=== PATIENT | female | born 1960 | race Caucasian/White ===

== ENCOUNTER → 2018-03-26 | Outpatient (CLI) | payer OTHER ==
--- NOTE | 2018-03-26 09:13 | CARD ---
MR#: [id number] Date of Study: 03/26/2018 Ordering Physician: BEATA HIGH, Referring Physician: BEATA HIGH, Tech: NORA Chang APPROVED REPORT EXAM: Two-dimensional and M-mode echocardiogram with Doppler and color Doppler. Other Information Quality : AverageHR: 62bpm INDICATION Near Syncope 2D DIMENSIONS RVDd2.9 (2.9-3.5cm)Left Atrium(2D)2.6 (1.6-4.0cm) IVSd1.1 (0.7-1.1cm)Aortic Root(2D)3.2 (2.0-3.7cm) LVDd4.7 (3.9-5.9cm)LVOT Diameter1.9 (1.8-2.4cm) PWd1.2 (0.7-1.1cm)LVDs3.3 (2.5-4.0cm) FS (%) 31.1 %SV60.7 ml LVEF(%)58.7 (>50%) Aortic Valve AoV Peak Brijesh.138.7cm/sAoV VTI32.1cm AO Peak GR.7.7mmHgLVOT Peak Brijesh.100.2cm/s LVOT VTI 21.77cmAO Mean GR.5mmHg MEME (VMAX)2.23jm7SHX (VTI)1.90cm2 Mitral Valve MV E Qyxelhon08.2cm/sMV DECEL JOMX410ni MV A Vscltubl67.5cm/sE/A Ratio0.8 Pulmonary Valve PV Peak Xwowsbcb52.3cm/sPV Peak Grad.4mmHg Tricuspid Valve TR P. Zfsxisxd624yh/sRAP BMVNDRTE47dgFq TR Peak Gr.69nfDoLRCA55ifBu Pulmonary Vein S1 Qtyqwxez63.6cm/sD2 Oaaaqkdu46.3cm/s LEFT VENTRICLE The left ventricle is normal size. There is mild LVPW hypertrophy. The left ventricular systolic func tion is normal and the ejection fraction is within normal range. ef 55% There is normal LV segmental wall motion. Transmitral Doppler flow pattern is Grade I-abnormal relaxation pattern. RIGHT VENTRICLE The right ventricle is normal size. The right ventricular systolic function is normal. ATRIA The left atrium size is normal. The right atrium size is normal. The interatrial septum is intact wit h no evidence for an atrial septal defect or patent foramen ovale as noted on 2-D or Doppler imaging. AORTIC VALVE The aortic valve is thickened but opens well. Doppler and Color Flow revealed no significant aortic r egurgitation. There is no significant aortic valvular stenosis. There is no aortic valvular vegetatio n. MITRAL VALVE The mitral valve is mildly thickened. There is no evidence of mitral valve prolapse. There is no mitr al valve stenosis. Doppler and Color Flow revealed no mitral valve regurgitation noted. TRICUSPID VALVE The tricuspid valve leaflets are thickened , but open well. Doppler and Color Flow revealed trace to mild tricuspid regurgitation. There is mild pulmonary hypertension. The PA pressure was estimated at 36 mmHg. There is no tricuspid valve prolapse or vegetation. There is no tricuspid valve stenosis. PULMONIC VALVE The pulmonic valve is not well visualized. Doppler and Color Flow revealed no pulmonic valvular regur gitation. There is no pulmonic valvular stenosis. GREAT VESSELS The aortic root is normal in size. The IVC is dilated. The IVC collapses <50% with inspiration. 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 PERICARDIAL EFFUSION There is no pleural effusion. There is no evidence of significant pericardial effusion. Critical Notification Critical Value: No <Conclusion> The left ventricular systolic function is normal and the ejection fraction is within normal range. ef 55% There is normal LV segmental wall motion. Signed by : Beata High, Electronically Approved : 03/26/2018 09:12:53
== END | disposition home or self-care (01) ==
LOC: ECHO 07:50
PROVIDERS: ATTEND Internal Medicine Cardiovascular Disease
DX: I36.1 Nonrheumatic tricuspid (valve) insufficiency (principal); I27.20 Pulmonary hypertension, unspecified; I51.7 Cardiomegaly
CPT/HCPCS: 93306